=== PATIENT | male | born 1985 | race Caucasian/White ===

== ENCOUNTER 2017-10-21 11:59 | Emergency (ER) | payer OTHER ==
--- NOTE | 2017-10-21 14:40 | ED Physician Documentation ---
PD HPI BACK INJURY - Stated complaint Stated Complaint: HEAD/BACK/SHOULDER PX - History obtained from History obtained from: Patient - History of Present Illness Location: Right, Upper Type of injury: Blunt / blow (he sayd he got struck by a falling piece of lumber (large piece of framing rafter) that fell, struck him in upper back, right side mostly. Has pain right scapular area, worse with breathing deeply, movement of upper back and with right shoulder movement/pushing.) Where injury occurred: Work Timing - onset: Today Timing - duration: Hours Timing - details: Abrupt onset, Still present Quality: Pain, Sharp Improved by: Rest Worsened by: Moving (upper back and right shoulder), Palpating, Other (breathing ) Associated symptoms: No: Weakness, Numbness Contributing factors: No: Anticoagulated, Prior back surgery Similar symptoms before: Has not had sx before Recently seen: Not recently seen Review of Systems Constitutional: denies: Fever, Chills Nose: denies: Rhinorrhea / runny nose, Congestion Throat: denies: Sore throat Cardiac: denies: Chest pain / pressure, Palpitations Respiratory: denies: Cough GI: denies: Abdominal Pain, Nausea, Vomiting, Diarrhea Skin: denies: Rash, Lesions, Abrasion (s) Musculoskeletal: reports: Back pain Neurologic: denies: Generalized weakness, Focal weakness, Numbness, Headache, Head injury PD PAST MEDICAL HISTORY - Past Medical History Past Medical History: No Musculoskeletal: None - Past Surgical History Past Surgical History: Yes - Present Medications Home Medications: Ambulatory Orders Medication Instructions Recorded Confirmed HYDROcod/ACETAM 5/325 [[place] 5/325] 1 tab PO Q6H PRN #20 tablet 10/21/17 Ibuprofen [Motrin] 600 mg PO TID #30 tab 10/21/17 Methocarbamol [Robaxin] 500 mg PO Q6H PRN #25 tablet 10/21/17 - Allergies Allergies/Adverse Reactions: Allergies Allergy/AdvReac Type Severity Reaction Status Date / Time No Known Drug Allergies Allergy Verified 10/21/17 12:16 - Social History Does the pt smoke?: Yes Smoking Status: Current every day smoker PD ED PE NORMAL - Vitals Vital signs reviewed: Yes - General General: Alert and oriented X 3, Well developed/nourished, Other (seems uncomfortable with upper back movement, shoulder lifting, and deep breathing. ) - HEENT HEENT: Atraumatic - Neck Neck: Supple, no meningeal sign, No bony TTP, No adenopathy - Cardiac Cardiac: RRR, No murmur - Respiratory Respiratory: No respiratory distress, Clear bilaterally, Other (right scapular area with tenderness to palpation but no crepitance. No focal tenderness per se , but generally with palpation of scapula. No rash nor bruising seen as yet. ) - Abdomen Abdomen: Soft, Non tender - Back Back: No CVA TTP, No spinal TTP - Derm Derm: Normal color, Warm and dry - Neuro Neuro: Alert and oriented X 3, No motor deficit, Normal speech Results - Vitals Vitals: Oxygen O2 Source Room air - Rads (name of study) chest Radiology: Prelim report reviewed (normal exam), EMP read contemporaneously ( lungs okay; right midscapular line with rib fracture # 7, minimally displaced. ) PD MEDICAL DECISION MAKING - ED course Complexity details: reviewed results (he has rib fracture right side posteriorly. Lungs okay. I talked with [employer] rep who said he would pass on my impression to the Radiologist to see if would modify the report to reflect that. ), considered differential, d/w patient Departure - Departure Disposition: 01 Home, Self Care Clinical Impression: Contusion of upper back Qualifiers: Encounter type: initial encounter Laterality: right Qualified Code(s): S20.221A - Contusion of right back wall of thorax, initial encounter Rib fracture Qualifiers: Encounter type: initial encounter Rib fracture type: single rib Fracture type: closed Laterality: right Qualified Code(s): S22.31XA - Fracture of one rib, right side, initial encounter for closed fracture Condition: Stable Record reviewed to determine appropriate education?: Yes Instructions: ED Contusion Back, ED Fx Rib Follow-Up: Kong Escudero MD [Provider Admit Priv/Credential] - [facility] [Provider Group] Prescriptions: HYDROcod/ACETAM 5/325 [[place] 5/325] 1 tab PO Q6H PRN #20 tablet PRN Reason: Pain Ibuprofen [Motrin] 600 mg PO TID #30 tab Methocarbamol [Robaxin] 500 mg PO Q6H PRN #25 tablet PRN Reason: Spasms Comments: It looks like one broken rib on the x-ray. There might be a hairline crack on another. This will limit her activity and he should be reasonably less active for the first 5-7 days. After that progress activity and work based on comfort. Use ibuprofen 3 times a day. Add Robaxin muscle relaxant for stiffness and spasms. Then Tylenol or hydrocodone if needed for worse pain. The bruising part as well as the initial healing of the rib should improve quite a bit over the first week and then be somewhat sore for the duration of the healing time which is about a month. Follow-up if not improving considerably over the first week or so. Forms: Activity restrictions Discharge Date/Time: 10/21/17 15:44
[2017-10-21] MEDS ORDERED: ACETAMINOPHEN 325 MG TABLET PO STA (14:54)
--- NOTE | 2017-10-21 15:21 | XRAY Report ---
EXAM: CHEST RADIOGRAPHY EXAM DATE: 10/21/2017 03:13 PM. CLINICAL HISTORY: Struck heavy right upper back yesterday at work. COMPARISON: 06/12/2006. TECHNIQUE: 2 views. FINDINGS: Lungs/Pleura: No focal opacities evident. No pleural effusion. No pneumothorax. Normal volumes. Mediastinum: Heart and mediastinal contours are unremarkable. Other: None. IMPRESSION: Negative chest. [facility] Referring Provider Line: [phone] SITE ID: [id number]
[2017-10-21 15:45] VITALS: BP 132/80
== END 2017-10-21 15:44 | disposition home or self-care (01) ==
LOC: ED 11:59
DX: S22.31XA Fracture of one rib, right side, initial encounter for closed fracture (principal); S20.221A Contusion of right back wall of thorax, initial encounter; W20.8XXA Other cause of strike by thrown, projected or falling object, initial encounter; Y99.0 Civilian activity done for income or pay; I10 Essential (primary) hypertension
CPT/HCPCS: 1040M; 71046; 99283; A9270